=== PATIENT | male | born 1955 | race Two or more races ===

== ENCOUNTER 2023-02-07 07:31 | Day surgery (SDC) | payer OTHER ==
[~2023-02-07] VITALS: Ht 157.5 cm; Wt 77.1 kg
[~2023-02-07 07:31] MED LIST: AMBIEN5 MG PO; COZAAR25 MG PO; ZOLOFT25 MG PO
== END 2023-02-07 13:40 | disposition home or self-care (01) ==
LOC: CIR.AMB 07:31
PROVIDERS: ATTEND Urology
DX: C67.9 Malignant neoplasm of bladder, unspecified (principal); I10 Essential (primary) hypertension; E78.49 Other hyperlipidemia; Z87.891 Personal history of nicotine dependence

== ENCOUNTER 2023-10-31 05:55 | Day surgery (SDC) | payer OTHER ==
[2023-10-22 11:50] LABS: PH,URINE 5.5 (5.0-8.0); URINE APPEARANCE Clear; URINE BILIRRUBIN Negative (NEGATIVE); URINE BLOOD Negative; URINE COLOR Yellow; URINE GLUCOSE Negative (NEGATIVE); URINE LEUKOCYTE Negative; URINE NITRATE Negative; URINE PROTEIN Negative (NEGATIVE); URINE UROBILINOGEN 0.2 E.U./dl
[2023-10-22 11:54] LABS: URINE EPITHELIAL CELLS 1.6 uL (0.0-38.8); URINE WBC 2.6 uL (0.0-23.2)
[2023-10-22 12:09] LABS: HEMOGLOBIN 15.6 g/dL (13-16.00); MEAN CORPUSCULAR HEMOGLOBIN 30.9 pg (27.00-32.0); MEAN CORPUSCULAR HGB CONC 34.7 g/dl (32.0-36.0); PLATELET COUNT 162 K/uL (150-450); RED BLOOD COUNT 5.06 M/uL (4.00-6.00); RED CELL DISTRIBUTION WIDTH 13.8 % (11.5-14.5)
[2023-10-22 12:13] LABS: URINE BACTERIA 1.2 uL (0.0-1933); URINE RBC 0.8 uL (0.0-20.8)
[2023-10-22 12:35] LABS: INR 1.01; PROTHROMBIN TIME 10.6 SECONDS (9.0-11.5)
[2023-10-22 12:40] LABS: CALCIUM 9.3 mg/dL (8.5-10.1); CREATININE SERUM 0.78 mg/dL (0.70-1.30); GFR 98.69; POTASSIUM 4.45 mEq/L (3.5-5.1)
== END 2023-10-31 18:40 | disposition home or self-care (01) ==
LOC: CIR.AMB 05:55
PROVIDERS: ATTEND Urology
DX: C67.9 Malignant neoplasm of bladder, unspecified (principal); I10 Essential (primary) hypertension; Z20.822 Contact with and (suspected) exposure to COVID-19